=== PATIENT | female | born 1945 | race Caucasian/White ===

== ENCOUNTER 2016-05-05 09:03 | Outpatient (CLI) | payer MEDICARE, OTHER | END 2016-05-05 09:04 | disposition home or self-care (01) | DX: Z79.899 Other long term (current) drug therapy (principal); E55.9 Vitamin D deficiency, unspecified; E78.5 Hyperlipidemia, unspecified ==

== ENCOUNTER 2016-05-17 09:01 | Outpatient (CLI) | payer MEDICARE, OTHER | END 2016-05-17 09:02 | disposition home or self-care (01) | DX: Z12.31 Encounter for screening mammogram for malignant neoplasm of breast (principal) ==

== ENCOUNTER 2016-05-17 09:04 | Outpatient (CLI) | payer MEDICARE, OTHER | END 2016-05-17 09:05 | disposition home or self-care (01) | DX: M81.0 Age-related osteoporosis without current pathological fracture (principal) ==

== ENCOUNTER 2017-05-12 08:00 | Outpatient (CLI) | payer MEDICARE, OTHER ==
[2017-05-12 13:05] LABS: BASOPHILS % (AUTO) 0.6 %; EOSINOPHILS # (AUTO) 0.1 10^3/uL (0.0-0.7); EOSINOPHILS % (AUTO) 2.7 %; HGB - HEMOGLOBIN 14.4 g/dL (12.0-16.0); LYMPHOCYTES # (AUTO) 1.9 10^3/uL (1.5-3.5); MEAN CORPUSCULAR HEMOGLOBIN 30.6 pg (27.0-31.0); MEAN PLATELET VOLUME 8.2 fL (7.9-10.8); MONOCYTES # (AUTO) 0.3 10^3/uL (0.0-1.0); MONOCYTES % (AUTO) 7.5 %; NEUTROPHILS # (AUTO) 1.8 10^3/uL (1.5-6.6); NEUTROPHILS % (AUTO) 43.2 %; PLT - PLATELET COUNT 247 10^3/uL (130-450); RED CELL DISTRIBUTION WIDTH 13.4 % (12.0-15.0); WHITE BLOOD COUNT 4.2 x10^3/uL (4.8-10.8)
[2017-05-12 13:17] LABS: ALBUMIN 4.3 g/dL (3.2-5.5); ALBUMIN/GLOBULIN RATIO 1.3 (1.0-2.2); ALKALINE PHOSPHATASE 71 IU/L (42-121); ALT ALANINE AMINOTRANSFERASE 16 IU/L (10-60); AST ASPARTATE AMINOTRANSFERASE 18 IU/L (10-42); BILIRUBIN,TOTAL 0.4 mg/dL (0.2-1.0); BUN - BLOOD UREA NITROGEN 18 mg/dL (6-20); CARBON DIOXIDE - CO2 26 mmol/L (21-32); CHLORIDE 105 mmol/L (101-111); CHOLESTEROL 295 mg/dL; CREATININE 0.8 mg/dL (0.4-1.0); GFR - MDRD 71 (>89); GLUCOSE 95 mg/dL (70-100); HDL CHOLESTEROL 59 mg/dL; LDL CHOLESTEROL,CALCULATED 195 mg/dL; LDL/HDL RATIO 3.3 (<4.4); SODIUM 137 mmol/L (135-145); TOTAL PROTEIN 7.5 g/dL (6.7-8.2); VLDL CHOLESTEROL 41 mg/dL
== END 2017-05-12 08:01 | disposition home or self-care (01) ==
LOC: LAB.R 08:00
PROVIDERS: ATTEND Nurse Practitioner Primary Care
DX: E55.9 Vitamin D deficiency, unspecified (principal); M81.0 Age-related osteoporosis without current pathological fracture; Z13.29 Encounter for screening for other suspected endocrine disorder; E78.5 Hyperlipidemia, unspecified; Z79.899 Other long term (current) drug therapy
CPT/HCPCS: 80053; 80061; 82306; 83721; 84443; 85025

== ENCOUNTER 2017-11-01 08:05 | Outpatient (CLI) | payer MEDICARE, OTHER ==
[2017-11-01 15:53] LABS: CHOL/HDL RATIO 4.5 (<4.4); CHOLESTEROL 257 mg/dL; HDL CHOLESTEROL 57 mg/dL; LDL CHOLESTEROL,CALCULATED 167 mg/dL; LDL/HDL RATIO 2.9 (<4.4); VLDL CHOLESTEROL 33 mg/dL
== END 2017-11-01 08:06 | disposition home or self-care (01) ==
LOC: LAB.R 08:05
PROVIDERS: ATTEND Nurse Practitioner Primary Care
DX: E78.5 Hyperlipidemia, unspecified (principal)
CPT/HCPCS: 80061; 83721

== ENCOUNTER 2018-01-08 08:35 | Outpatient (CLI) | payer MEDICARE, OTHER ==
[2018-01-08 11:27] LABS: ALT ALANINE AMINOTRANSFERASE 22 IU/L (10-60); AST ASPARTATE AMINOTRANSFERASE 24 IU/L (10-42); CHOL/HDL RATIO 2.6 (<4.4); CHOLESTEROL 146 mg/dL; HDL CHOLESTEROL 56 mg/dL; LDL CHOLESTEROL,CALCULATED 69 mg/dL; LDL/HDL RATIO 1.2 (<4.4); VLDL CHOLESTEROL 21 mg/dL
== END 2018-01-08 08:36 | disposition home or self-care (01) ==
LOC: LAB.R 08:35
PROVIDERS: ATTEND Nurse Practitioner Primary Care
DX: E78.5 Hyperlipidemia, unspecified (principal); Z79.899 Other long term (current) drug therapy
CPT/HCPCS: 80061; 83721; 84450; 84460

== ENCOUNTER 2018-05-14 08:00 | Outpatient (CLI) | payer MEDICARE, OTHER ==
[2018-05-14 15:22] LABS: BASOPHILS % (AUTO) 0.5 %; EOSINOPHILS # (AUTO) 0.1 10^3/uL (0.0-0.7); LYMPHOCYTES # (AUTO) 1.7 10^3/uL (1.5-3.5); LYMPHOCYTES % (AUTO) 32.8 %; MEAN CORPUSCULAR HEMOGLOBIN 31.3 pg (27.0-31.0); MEAN CORPUSCULAR HGB CONC 34.3 g/dL (32.0-36.0); MEAN CORPUSCULAR VOLUME 91.5 fL (81.0-99.0); MEAN PLATELET VOLUME 8.9 fL (7.9-10.8); MONOCYTES # (AUTO) 0.3 10^3/uL (0.0-1.0); MONOCYTES % (AUTO) 5.8 %; NEUTROPHILS % (AUTO) 58.9 %; PLT - PLATELET COUNT 213 10^3/uL (130-450); RED BLOOD COUNT 4.46 10^6/uL (4.20-5.40); RED CELL DISTRIBUTION WIDTH 13.5 % (12.0-15.0); WHITE BLOOD COUNT 5.2 x10^3/uL (4.8-10.8)
[2018-05-14 15:40] LABS: ALBUMIN 4.1 g/dL (3.2-5.5); ALBUMIN/GLOBULIN RATIO 1.5 (1.0-2.2); ALKALINE PHOSPHATASE 75 IU/L (42-121); ALT ALANINE AMINOTRANSFERASE 18 IU/L (10-60); AST ASPARTATE AMINOTRANSFERASE 19 IU/L (10-42); BILIRUBIN,TOTAL 0.6 mg/dL (0.2-1.0); BUN - BLOOD UREA NITROGEN 15 mg/dL (6-20); CALCIUM 8.9 mg/dL (8.5-10.3); CARBON DIOXIDE - CO2 27 mmol/L (21-32); CHLORIDE 104 mmol/L (101-111); CHOL/HDL RATIO 5.2 (<4.4); CHOLESTEROL 281 mg/dL; CREATININE 0.7 mg/dL (0.4-1.0); GFR - MDRD 82 (>89); GLUCOSE 87 mg/dL (70-100); HDL CHOLESTEROL 54 mg/dL; LDL CHOLESTEROL,CALCULATED 188 mg/dL; LDL/HDL RATIO 3.5 (<4.4); SODIUM 138 mmol/L (135-145); TOTAL PROTEIN 6.9 g/dL (6.7-8.2); VLDL CHOLESTEROL 39 mg/dL
== END 2018-05-14 23:59 ==
LOC: LAB.R 08:00
PROVIDERS: ATTEND Nurse Practitioner Primary Care
DX: E55.9 Vitamin D deficiency, unspecified (principal); Z79.899 Other long term (current) drug therapy; E78.5 Hyperlipidemia, unspecified; M81.0 Age-related osteoporosis without current pathological fracture; Z13.29 Encounter for screening for other suspected endocrine disorder
CPT/HCPCS: 80053; 80061; 82306; 83721; 84443; 85025

== ENCOUNTER 2018-07-13 09:26 | Outpatient (CLI) | payer MEDICARE, OTHER ==
[2018-07-13 10:00] LABS: BASOPHILS % (AUTO) 0.8 %; EOSINOPHILS # (AUTO) 0.1 10^3/uL (0.0-0.7); EOSINOPHILS % (AUTO) 2.6 %; HGB - HEMOGLOBIN 13.6 g/dL (12.0-16.0); LYMPHOCYTES # (AUTO) 1.7 10^3/uL (1.5-3.5); MEAN CORPUSCULAR HEMOGLOBIN 30.7 pg (27.0-31.0); MEAN CORPUSCULAR VOLUME 90.5 fL (81.0-99.0); MEAN PLATELET VOLUME 8.3 fL (7.9-10.8); MONOCYTES # (AUTO) 0.3 10^3/uL (0.0-1.0); MONOCYTES % (AUTO) 7.3 %; NEUTROPHILS % (AUTO) 48.3 %; PLT - PLATELET COUNT 243 10^3/uL (130-450); RED BLOOD COUNT 4.44 10^6/uL (4.20-5.40); WHITE BLOOD COUNT 4.2 x10^3/uL (4.8-10.8)
[2018-07-13 10:09] LABS: ALBUMIN 4.1 g/dL (3.2-5.5); ALBUMIN/GLOBULIN RATIO 1.4 (1.0-2.2); BILIRUBIN,TOTAL 0.7 mg/dL (0.2-1.0); CREATININE 0.8 mg/dL (0.4-1.0)
== END 2018-07-13 09:27 | disposition home or self-care (01) ==
LOC: LAB 09:26
PROVIDERS: ATTEND Family Medicine
DX: R19.7 Diarrhea, unspecified (principal); K29.00 Acute gastritis without bleeding; B96.81 Helicobacter pylori [H. pylori] as the cause of diseases classified elsewhere; K21.9 Gastro-esophageal reflux disease without esophagitis
CPT/HCPCS: 36415; 80053; 85025

== ENCOUNTER 2018-08-02 09:28 | Outpatient (CLI) | payer MEDICARE, OTHER ==
--- NOTE | 2018-08-03 09:29 | Mammography Report ---
Reason: SCREENING MAMMO Procedure Date: 08/02/2018 Accession Number: [id number] / [id number] Procedure: OZZIE - Screening Mammo w/Arnoldo CPT Code: FULL RESULT: EXAM: Screening Mammo w/Arnoldo DATE: 08/02/2018 10:04 AM CLINICAL HISTORY: Screening encounter. History of nulliparity. TECHNIQUE: (B) - Bilateral CC and MLO views were obtained. COMPARISON: 05/17/2016 through 05/24/2011. PARENCHYMAL PATTERN: (D) - The breast(s) demonstrate(s) heterogeneously dense fibroglandular parenchyma. FINDINGS: There are coarse typically benign calcifications. There are no suspicious masses, calcifications, or areas of distortion. IMPRESSION: Benign findings. BI-RADS category 2. RECOMMENDATION: (ANNUAL) - Recommend routine annual screening mammography. BI-RADS CATEGORY: (2) - Benign Findings. STANDARD QUALIFYING STATEMENTS: 1. This examination was not reviewed with the aid of Computer-Aided Detection (CAD). 2. A negative or benign imaging report should not preclude biopsy if clinically suspicious findings are present. 3. Dense breasts may obscure an underlying neoplasm. 4. This examination was reviewed with the aid of 3D breast imaging (tomosynthesis).
== END 2018-08-02 09:29 | disposition home or self-care (01) ==
LOC: DI 09:28
PROVIDERS: ATTEND Family Medicine
DX: Z12.31 Encounter for screening mammogram for malignant neoplasm of breast (principal)
CPT/HCPCS: 77063; 77067

== ENCOUNTER 2018-08-02 09:32 | Outpatient (CLI) | payer MEDICARE, OTHER ==
--- NOTE | 2018-08-03 15:32 | DEXA Report ---
Reason: OSTEOPOROSIS Procedure Date: 08/02/2018 Accession Number: [id number] / [id number] Procedure: DEX - Dexa Spine and/or Hip CPT Code: FULL RESULT: EXAM: Dexa Spine and/or Hip DATE: 08/02/2018 10:18 AM CLINICAL HISTORY: OSTEOPOROSIS TECHNIQUE: Dual energy x-ray absorptiometry (DXA) was performed on a [employer] System. Regions measured are the AP Spine, femoral neck, and if needed forearm. COMPARISON: 05/17/2016. In accordance with the International Society for Clinical Densitometry (ISCD) guidelines, data from previous exams may be reanalyzed using current recommendations and techniques. This is done to allow a more accurate basis for comparison with the current study. FINDINGS: The data for the lumbar spine is as follows: BMD (g/cm/cm) T-SCORE Z-SCORE REGION L1 0.842 -2.4 -1.0 L2 0.849 -2.9 -1.5 L3 0.884 -2.6 -1.2 L4 0.984 -1.8 -0.4 TOTAL 0.892 -2.4 -1.0 NOTE: All evaluable vertebrae are used for classification The data for the hip is as follows: BMD (g/cm/cm) T-SCORE Z-SCORE REGION Neck 0.639 -2.9 -1.3 TOTAL 0.799 -1.7 -0.3 NOTE: The femoral neck or total proximal femur, whichever is lowest, is used for classification. DXA RESULTS SUMMARY: Spine SCAN DATE AGE BMD CHANGE VS CHANGE VS PREVIOUS PREVIOUS % 08/02/2018 [age] 0.892 0.022 2.5 05/17/2016 [age] 0.870 * Denotes significant change at the 95% confidence level. Denotes dissimilar scan types or analysis methods. DXA RESULTS SUMMARY: Hip SCAN DATE AGE BMD CHANGE VS CHANGE VS PREVIOUS PREVIOUS % [birth year]02/2018 72.7 0.799 -0.030 -3.6 05/17/2016 70.5 0.829 * Denotes significant change at the 95% confidence level. Denotes dissimilar scan types or analysis methods. IMPRESSION: THE WHO CLASSIFICATION BASED ON THE INTERNATIONAL REFERENCE STANDARD IS OSTEOPOROSIS. THE FRACTURE RISK IS HIGH. RECOMMENDATION: Patients with diagnosis of osteoporosis or osteopenia should have regular bone mineral density assessment. For those eligible for Medicare, routine testing is allowed once every 2 years. Testing frequency can be increased for patients who have rapidly progressing disease or for those who are receiving medical therapy to restore bone mass. COMMENT: World Health Organization (WHO) definitions for osteoporosis and osteopenia: NORMAL BMD: T-score at -1.0 or higher, fracture risk is low OSTEOPENIA BMD: T-score between -1.0 and -2.5, fracture risk is increased. OSTEOPOROSIS BMD: T-score at -2.5 or lower, fracture risk is high. National Osteoporosis Foundation recommends: 1. Obtain adequate dietary calcium (at least 1200 mg per day) and vitamin D (400-800 international units per day). 2. Participate, as appropriate, in regular weightbearing and muscle-strengthening exercise. 3. Avoid tobacco use and reduce alcohol and caffeine intake. 4. For more detailed information see the website at www.NOF.org.
== END 2018-08-02 09:33 | disposition home or self-care (01) ==
LOC: DI 09:32
PROVIDERS: ATTEND Family Medicine
DX: M81.0 Age-related osteoporosis without current pathological fracture (principal); Z78.0 Asymptomatic menopausal state
CPT/HCPCS: 77080

== ENCOUNTER 2018-12-10 10:27 | Outpatient (CLI) | payer MEDICARE, OTHER ==
--- NOTE | 2018-12-11 09:18 | XRAY Report ---
Reason: THORACIC BACK PAIN, BACK PAIN LUMBAR Procedure Date: 12/10/2018 Accession Number: [id number] / [id number] Procedure: XR - Lumbar Spine 2 View CPT Code: FULL RESULT: EXAM: LUMBOSACRAL SPINE RADIOGRAPHY EXAM DATE: 12/10/2018 11:04 AM. CLINICAL HISTORY: Thoracic back pain, back pain lumbar. COMPARISONS: None. TECHNIQUE: 3 views. FINDINGS: Alignment: Normal. No spondylolisthesis or scoliosis. Bones: Five pih-vnb-fqvalux lumbar vertebral bodies are present. Moderate to severe compression fracture of the T12 vertebral body with loss of 70% of the anterior bone height and 20% of the posterior bone height. No retropulsion. Disks: Disk heights are maintained. Minor anterior marginal osteophyte noted at the L1-L2 and L2-L3 vertebral bodies. Facets: No degenerative changes. Sacroiliac Joints: Unremarkable. Soft Tissues: Normal. The visualized bowel gas pattern is normal. No paraspinous soft tissue swelling. IMPRESSION: Moderate to severe compression fracture T12 vertebral body as detailed. Fracture is age indeterminate but lack of soft tissue findings favors chronic fracture. RADIA
--- NOTE | 2018-12-11 09:22 | XRAY Report ---
Reason: THORACIC BACK PAIN, BACK PAIN LUMBAR Procedure Date: 12/10/2018 Accession Number: [id number] / [id number] Procedure: XR - Thoracic Spine 2 View CPT Code: FULL RESULT: EXAM: THORACIC SPINE RADIOGRAPHY EXAM DATE: 12/10/2018 11:05 AM. CLINICAL HISTORY: Thoracic back pain, back pain lumbar. COMPARISON: None. TECHNIQUE: 2 views. FINDINGS: Alignment: Normal. No spondylolisthesis or scoliosis. Bones: Moderate to severe anterior wedging compression fracture of the T12 vertebral body with loss of 70% of the anterior bone height and perhaps 20% of the posterior bone height. No appreciable retropulsion. Minor lateral marginal osteophyte at this level. No additional fractures appreciated. Disks: Normal. Disk heights are maintained. Soft Tissues: No paraspinous soft tissue swelling. IMPRESSION: Moderate to severe anterior wedging compression fracture of T12 as described. Fracture is age-indeterminate but lack of soft tissue findings favors chronic fracture. RADIA
== END 2018-12-10 10:28 | disposition home or self-care (01) ==
LOC: DI 10:27
PROVIDERS: ATTEND Nurse Practitioner
DX: M48.54XA Collapsed vertebra, not elsewhere classified, thoracic region, initial encounter for fracture (principal)
CPT/HCPCS: 72070; 72100

== ENCOUNTER 2018-12-18 09:32 | Outpatient (CLI) | payer MEDICARE, OTHER ==
--- NOTE | 2018-12-18 14:16 | MRI Report ---
Reason: THORACIC BACK PAIN,HX OF PATHOLOGICAL VERTEBRAL FR Procedure Date: 12/18/2018 Accession Number: [id number] / [id number] Procedure: MRI - Thoracic Spine W/O CPT Code: FULL RESULT: EXAM: MRI THORACIC SPINE WITHOUT CONTRAST EXAM DATE: 12/18/2018 10:09 AM. CLINICAL HISTORY: Thoracic back pain, history of pathological vertebral fracture. COMPARISONS: THORACIC SPINE 2 VIEW 12/10/2018 10:47 AM LUMBAR SPINE 2 VIEW 12/10/2018 10:47 AM XR HIPS BILAT 05/24/2011 2:15 PM LT HIP 12/10/2007 12:16 PM. TECHNIQUE: Multiplanar, multisequence T1-weighted and fluid-sensitive sequences of the thoracic spine from C7 to L1 without contrast. Other: None. FINDINGS: Spinal Canal: No signal abnormality in the visualized spinal cord. Alignment: No scoliosis or spondylolisthesis. Bone Marrow: 1. Complete subacute burst fracture T12 vertebral body with fragmentation, concave deformity of the superior and inferior vertebral body endplates, 35% loss in vertebral body height and retropulsed 3 mm posterior superior vertebral body cortex. Probable pathologic fracture with possible T12 vertebral body neoplasm. 2. Modic type I degenerative vertebral body marrow edema anterior T8-T9 interspace with anterior interbody fusion. 3. Anterior T7-T8 Modic type II degenerative vertebral body marrow signal (image 8 series 501). Disk Levels/Facets: C7-T1: Mild bilateral facet joint arthrosis. Negative for spinal canal stenosis or foraminal stenosis. Preservation of disk height. T1-T2: Unremarkable. T2-T3: Anterolisthesis 2 mm T2 on T3. Moderate facet joint arthrosis. Negative for foraminal stenosis. T3-T4: Moderate facet joint arthrosis. Mild right foraminal stenosis from facet hypertrophy. Negative for central spinal canal stenosis. T4-T5: Mild bilateral facet joint arthrosis. Negative for spinal canal stenosis or foraminal stenosis. Mild disk degeneration. T5-T6: Moderate disk degeneration. Mild facet joint arthrosis. Negative for spinal canal stenosis or foraminal stenosis. T6-T7: Moderate disk degeneration. Negative for spinal canal stenosis or foraminal stenosis. Mild left facet joint arthrosis. T7-T8: Moderate disk degeneration. Modic type II degenerative vertebral body marrow signal anterior interspace. Moderate left facet joint arthrosis. Mild left foraminal stenosis. Right neural foramen is negative for stenosis. T8-T9: Modic type I degenerative vertebral body marrow signal anterior interspace. Moderate disk degeneration. Moderate left foraminal stenosis from facet hypertrophy. The right neural foramen is negative for stenosis. T9-T10: Unremarkable. T10-T11: Negative for spinal canal stenosis or foraminal stenosis. T11-T12: Retropulsed 3 mm posterior superior T12 vertebral body with mild ventral effacement of the thoracic cord without cord signal abnormality and mild central spinal canal stenosis. The neural foramina are negative for stenosis. T12-L1: Negative for spinal canal stenosis or foraminal stenosis. Musculature: Normal. No edema or fatty atrophy. Other: The visualized lungs, mediastinum, and abdominal cavity are unremarkable. IMPRESSION: 1. Complete pathologic burst fracture T12 vertebral body with 35% loss of vertebral body height, concave deformity of the superior and inferior vertebral body endplates and retropulsed posterior superior T12 vertebral body cortex. Negative for additional thoracic vertebrae focal lesions to confirm metastasis. 2. Retropulsed 3 mm posterior superior T12 vertebral body cortex with mild ventral effacement of the thoracic cord without cord signal abnormality and mild central spinal canal stenosis. 3. Modic type I degenerative vertebral body marrow edema anterior T8-T9 interspace. 4. The thoracic cord is negative for signal abnormality. 5. Negative for focal disk herniation. 6. Mild right T3-T4, mild left T7-T8 and moderate left T8-T9 foraminal stenosis. RADIA
== END 2018-12-18 09:33 | disposition home or self-care (01) ==
LOC: DI 09:32
PROVIDERS: ATTEND Nurse Practitioner
DX: M48.54XA Collapsed vertebra, not elsewhere classified, thoracic region, initial encounter for fracture (principal); M48.04 Spinal stenosis, thoracic region; M54.5 Low back pain; Z87.311 Personal history of (healed) other pathological fracture
CPT/HCPCS: 72146

== ENCOUNTER 2018-12-26 11:30 | Outpatient (CLI) | payer MEDICARE, OTHER ==
[2018-12-26 11:56] LABS: BASOPHILS % (AUTO) 0.9 %; EOSINOPHILS # (AUTO) 0.1 10^3/uL (0.0-0.7); EOSINOPHILS % (AUTO) 2.2 %; LYMPHOCYTES # (AUTO) 1.9 10^3/uL (1.5-3.5); LYMPHOCYTES % (AUTO) 41.1 %; MEAN CORPUSCULAR HEMOGLOBIN 30.2 pg (27.0-31.0); MEAN CORPUSCULAR HGB CONC 33.3 g/dL (32.0-36.0); MEAN CORPUSCULAR VOLUME 90.7 fL (81.0-99.0); MEAN PLATELET VOLUME 10.4 fL (7.9-10.8); MONOCYTES # (AUTO) 0.3 10^3/uL (0.0-1.0); MONOCYTES % (AUTO) 7.4 %; NEUTROPHILS # (AUTO) 2.2 10^3/uL (1.5-6.6); NEUTROPHILS % (AUTO) 48.2 %; PLT - PLATELET COUNT 229 10^3/uL (130-450); RED BLOOD COUNT 4.64 10^6/uL (4.20-5.40); RED CELL DISTRIBUTION WIDTH 13.8 % (12.0-15.0); WHITE BLOOD COUNT 4.6 x10^3/uL (4.8-10.8)
[2018-12-26] MEDS ORDERED: IOVERSOL 320 50 ML VIAL ONE (11:56)
[2018-12-26] MEDS ORDERED: IOVERSOL 320 100 ML VIAL IVP ONE ×2 (11:57→16:08)
[2018-12-26 12:13] LABS: ALBUMIN 4.3 g/dL (3.2-5.5); ALBUMIN/GLOBULIN RATIO 1.5 (1.0-2.2); BILIRUBIN,TOTAL 0.8 mg/dL (0.2-1.0); CALCIUM 9.7 mg/dL (8.5-10.3); CREATININE 0.9 mg/dL (0.4-1.0); TOTAL PROTEIN 7.2 g/dL (6.7-8.2)
[2018-12-26] MEDS ORDERED: IOVERSOL 320 50 ML VIAL PO ONE (16:08)
--- NOTE | 2018-12-27 08:51 | CT Report ---
Reason: HX OF PATHOLOGICAL VERTEBRAL FRACTURE Procedure Date: 12/26/2018 Accession Number: [id number] / [id number] Procedure: CT - CHEST W CPT Code: FULL RESULT: EXAM: CT CHEST EXAM DATE: 12/26/2018 12:58 PM. CLINICAL HISTORY: History of pathological vertebral fracture. COMPARISONS: THORACIC SPINE W/O 12/18/2018 10:09 AM. TECHNIQUE: Routine helical CT imaging was performed through the chest. IV contrast: 100 mL Optiray 320. Reconstructions: Coronal and sagittal. In accordance with CT protocol optimization, one or more of the following dose reduction techniques were utilized for this exam: automated exposure control, adjustment of mA and/or KV based on patient size, or use of iterative reconstructive technique. FINDINGS: Lungs/Pleura: No nodules, bronchial thickening, consolidation, or edema. Pulmonary vasculature is normal. No pericardial or pleural effusion. No pneumothorax. Mediastinum: Normal. No adenopathy or masses. The heart and great vessels are normal. Bones: Grade 2 burst fracture at T12 appears without significant change versus comparison MRI, including retropulsed superior T12 vertebral body cortex approximately 3 mm into the spinal canal. No bone abnormalities on current study detected elsewhere to indicate metastatic disease. Disk space narrowing with subchondral sclerotic changes consistent with degenerative process is seen anteriorly at T8/T9. Visualized Abdomen: Unremarkable. Other: None. IMPRESSION: Stable appearance of burst fracture at T12. No suspicious foci detected elsewhere on current study to indicate primary or metastatic neoplasm. RADIA
--- NOTE | 2018-12-27 12:51 | CT Report ---
Reason: HX OF PATHOLOGICAL VERTEBRAL FRACTURE Procedure Date: 12/26/2018 Accession Number: [id number] / [id number] Procedure: CT - Abdomen/Pelvis W CPT Code: FULL RESULT: EXAM: CT ABDOMEN AND PELVIS EXAM DATE: 12/26/2018 12:58 PM. CLINICAL HISTORY: History of pathological vertebral fracture. COMPARISONS: THORACIC SPINE W/O 12/18/2018 10:09 AM. TECHNIQUE: Routine helical CT imaging was performed through the abdomen and pelvis. IV contrast: OPTI 320 100ML. Enteric contrast: No. Reconstructions: Coronal and sagittal. In accordance with CT protocol optimization, one or more of the following dose reduction techniques were utilized for this exam: automated exposure control, adjustment of mA and/or KV based on patient size, or use of iterative reconstructive technique. FINDINGS: Lung Bases: Unremarkable. Liver: Normal. No masses. Gallbladder/Bile Ducts: Unremarkable. Spleen: Normal. Pancreas: Normal. Adrenal Glands: Normal. Kidneys: Normal. No masses or hydronephrosis. Peritoneal Cavity/Bowel: Normal. No free fluid, free air or adenopathy. No masses or acute inflammatory process. The appendix is well visualized and normal. Pelvic Organs: Normal. The bladder and visualized pelvic organs are within normal limits. Vasculature: No aneurysms or other significant abnormality. Bones: Stable appearance of burst fracture at T12. No suspicious bone masses or fractures detected elsewhere within the abdomen or pelvis. Other: The central breast parenchyma appears moderately dense. This may be better evaluated by mammography. IMPRESSION: Known burst fracture at T12. No suspicious masses detected on current study. Dense central breast parenchyma, which may be better evaluated by mammography. RADIA
== END 2018-12-26 11:31 | disposition home or self-care (01) ==
LOC: LAB 11:30 → DI 11:31
PROVIDERS: ATTEND Nurse Practitioner
DX: M54.6 Pain in thoracic spine (principal); Z87.311 Personal history of (healed) other pathological fracture
CPT/HCPCS: 36415; 71260; 74177; 80053; 85025; Q9967

== ENCOUNTER 2019-02-21 10:57 | Outpatient (CLI) | payer MEDICARE, OTHER ==
[2019-02-21 11:20] LABS: BASOPHILS # (AUTO) 0.1 10^3/uL (0.0-0.1); EOSINOPHILS # (AUTO) 0.1 10^3/uL (0.0-0.7); EOSINOPHILS % (AUTO) 2.1 %; HGB - HEMOGLOBIN 13.9 g/dL (12.0-16.0); LYMPHOCYTES # (AUTO) 2.3 10^3/uL (1.5-3.5); MEAN CORPUSCULAR HEMOGLOBIN 30.3 pg (27.0-31.0); MEAN CORPUSCULAR VOLUME 91.7 fL (81.0-99.0); MEAN PLATELET VOLUME 10.2 fL (7.9-10.8); MONOCYTES # (AUTO) 0.4 10^3/uL (0.0-1.0); MONOCYTES % (AUTO) 7.9 %; NEUTROPHILS % (AUTO) 41.8 %; PLT - PLATELET COUNT 217 10^3/uL (130-450); RED BLOOD COUNT 4.59 10^6/uL (4.20-5.40); RED CELL DISTRIBUTION WIDTH 13.4 % (12.0-15.0); WHITE BLOOD COUNT 4.8 x10^3/uL (4.8-10.8)
[2019-02-21 11:51] LABS: ALBUMIN 4.5 g/dL (3.2-5.5); ALBUMIN/GLOBULIN RATIO 1.6 (1.0-2.2); ALKALINE PHOSPHATASE 70 IU/L (42-121); ALT ALANINE AMINOTRANSFERASE 17 IU/L (10-60); AST ASPARTATE AMINOTRANSFERASE 20 IU/L (10-42); BUN - BLOOD UREA NITROGEN 21 mg/dL (6-20); CALCIUM 9.3 mg/dL (8.5-10.3); CARBON DIOXIDE - CO2 28 mmol/L (21-32); CHLORIDE 102 mmol/L (101-111); CHOL/HDL RATIO 4.6 (<4.4); CHOLESTEROL 278 mg/dL; CREATININE 0.8 mg/dL (0.4-1.0); GFR - MDRD 70 (>89); GLUCOSE 98 mg/dL (70-100); HDL CHOLESTEROL 60 mg/dL; LDL CHOLESTEROL,CALCULATED 182 mg/dL; SODIUM 140 mmol/L (135-145); TOTAL PROTEIN 7.4 g/dL (6.7-8.2); VLDL CHOLESTEROL 36 mg/dL
== END 2019-02-21 10:58 | disposition home or self-care (01) ==
LOC: LAB 10:57
PROVIDERS: ATTEND Nurse Practitioner
DX: Z87.311 Personal history of (healed) other pathological fracture (principal); M81.0 Age-related osteoporosis without current pathological fracture; Z79.899 Other long term (current) drug therapy; E55.9 Vitamin D deficiency, unspecified; E78.5 Hyperlipidemia, unspecified
CPT/HCPCS: 36415; 80053; 80061; 82306; 83721; 85025

== ENCOUNTER 2019-04-09 11:58 | Outpatient (CLI) | payer MEDICARE, OTHER ==
[2019-04-09 13:31] LABS: THYROID STIMULATING HORMONE 1.74 uIU/mL (0.34-5.60)
[2019-04-09 13:34] LABS: FREE T4 (FREE THYROXINE) 0.89 ng/dL (0.58-1.64)
== END 2019-04-09 11:59 | disposition home or self-care (01) ==
LOC: LAB 11:58
PROVIDERS: ATTEND Nurse Practitioner
DX: L65.9 Nonscarring hair loss, unspecified (principal)
CPT/HCPCS: 36415; 84439; 84443; 84481

== ENCOUNTER 2020-04-01 09:48 | Outpatient (CLI) | payer MEDICARE, OTHER ==
--- NOTE | 2020-04-01 10:35 | DEXA Report ---
PROCEDURE: Dexa Spine and/or Hip INDICATIONS: OSTEOPOROSIS TECHNIQUE: Dual energy x-ray absorptiometry (DXA) was performed on a [employer] System. Regions measur ed are the AP Spine, femoral neck, and if needed forearm. COMPARISON: 08/02/2018. FINDINGS: Lumbar Spine: Bone Mineral Density 0.939 g/cm/cm,T score -2.0, there is 5.3% increase in total lumbar spine bone mineral density since previous study Left Hip: Bone Mineral Density 0.79 g/cm/cm,T score -1.7. There is 1.3% decrease in left total hip bone minera l density since previous study. Left Femoral Neck: Bone Mineral Density 0.648 g/cm/cm, T score -2.8. (T score greater or equal to -1.0: NORMAL) (T score from -1.1 to -2.4: OSTEOPENIA) (T score less than or equal to -2.5 to: OSTEOPOROSIS) Impression: Osteoporosis. Patients with diagnosis of osteoporosis or osteopenia should have regular bone mineral density assess ment. For those eligible for Medicare, routine testing is allowed once every 2 years. Testing frequ ency can be increased for patients who have rapidly progressing disease or for those who are receivin g medical therapy to restore bone mass. Reviewed by: Mikhail Naidu MD on 04/01/2020 9:34 AM [facility] Approved by: Mikhail Naidu MD on 04/01/2020 9:34 AM [place] Station ID: [id number]
== END 2020-04-01 09:49 | disposition home or self-care (01) ==
LOC: DI 09:48
PROVIDERS: ATTEND Nurse Practitioner
DX: M81.0 Age-related osteoporosis without current pathological fracture (principal); M85.88 Other specified disorders of bone density and structure, other site

== ENCOUNTER 2020-05-20 10:31 | Outpatient (CLI) | payer MEDICARE, OTHER ==
[2020-05-20 18:53] LABS: BASOPHILS # (AUTO) 0.1 10^3/uL (0.0-0.1); BASOPHILS % (AUTO) 1.1 %; EOSINOPHILS # (AUTO) 0.1 10^3/uL (0.0-0.7); LYMPHOCYTES # (AUTO) 2.1 10^3/uL (1.5-3.5); LYMPHOCYTES % (AUTO) 45.4 %; MEAN CORPUSCULAR HEMOGLOBIN 29.9 pg (27.0-31.0); MEAN CORPUSCULAR HGB CONC 31.9 g/dL (32.0-36.0); MEAN CORPUSCULAR VOLUME 93.6 fL (81.0-99.0); MEAN PLATELET VOLUME 11.2 fL (7.9-10.8); MONOCYTES # (AUTO) 0.3 10^3/uL (0.0-1.0); MONOCYTES % (AUTO) 6.9 %; NEUTROPHILS % (AUTO) 43.4 %; PLT - PLATELET COUNT 238 10^3/uL (130-450); RED BLOOD COUNT 4.69 10^6/uL (4.20-5.40); RED CELL DISTRIBUTION WIDTH 13.1 % (12.0-15.0); WHITE BLOOD COUNT 4.7 x10^3/uL (4.8-10.8)
[2020-05-20 19:05] LABS: ALBUMIN 4.3 g/dL (3.2-5.5); ALBUMIN/GLOBULIN RATIO 1.6 (1.0-2.2); ALKALINE PHOSPHATASE 75 IU/L (42-121); ALT ALANINE AMINOTRANSFERASE 15 IU/L (10-60); AST ASPARTATE AMINOTRANSFERASE 18 IU/L (10-42); BILIRUBIN,TOTAL 0.7 mg/dL (0.2-1.0); BUN - BLOOD UREA NITROGEN 17 mg/dL (6-20); CALCIUM 9.4 mg/dL (8.5-10.3); CARBON DIOXIDE - CO2 27 mmol/L (21-32); CHLORIDE 103 mmol/L (101-111); CHOL/HDL RATIO 5.3 (<4.4); CHOLESTEROL 273 mg/dL; CREATININE 0.9 mg/dL (0.4-1.0); GLUCOSE 102 mg/dL (70-100); HDL CHOLESTEROL 52 mg/dL; LDL CHOLESTEROL,CALCULATED 187 mg/dL; LDL/HDL RATIO 3.6 (<4.4); VLDL CHOLESTEROL 34 mg/dL
[2020-05-20 19:17] LABS: THYROID STIMULATING HORMONE 1.41 uIU/mL (0.34-5.60)
[2020-05-20 19:18] LABS: FREE T3 3.27 pg/mL (2.5-3.9)
[2020-05-20 19:19] LABS: FREE T4 (FREE THYROXINE) 0.9 ng/dL (0.58-1.64)
== END 2020-05-20 23:59 | disposition home or self-care (01) ==
LOC: LAB.WCP 10:31
PROVIDERS: ATTEND Nurse Practitioner
DX: L65.9 Nonscarring hair loss, unspecified (principal); E78.5 Hyperlipidemia, unspecified; R03.0 Elevated blood-pressure reading, without diagnosis of hypertension
CPT/HCPCS: 36415; 80053; 80061; 83721; 84439; 84443; 84481; 85025

== ENCOUNTER 2020-06-01 08:49 | Outpatient (CLI) | payer MEDICARE, OTHER ==
--- NOTE | 2020-06-02 11:10 | Nuclear Medicine Report ---
PROCEDURE: Bone Whole Body INDICATIONS: HX OF PATHOLOGICAL VERTEBRAL FRACTURE RADIOPHARMACEUTICAL: 26.5 mCi Tc-99m MDP IV. TECHNIQUE: Delayed whole-body scintigrams were obtained approximately 3-4 hours after intravenous injection of r adiotracer. Anterior and posterior views were acquired from vertex to feet. Additional left and rig ht oblique views of the were obtained. COMPARISON: Whole-body bone scan ([facility]), 05/02/2019. MRI of the thoracic spine ([facility]), 12/18/2018. X-ray thoracic spine and lumbar spine ([facility]), 12/10/2018. FINDINGS: There is mildly increased uptake in the T12 area, decreased compared to the last bone scan on 05/02/2019. Multiple foci of increased activity are seen in cervical, thoracic and lumbar spine, indistinguishable from degenerative changes. There are increased periarticular activity in shoulders bilaterally, elbows bilaterally, wrists bilaterally, hips bilaterally, sacroiliac joints bilaterally, knees bilaterally and both feet, compatible with degenerative/arthritic changes. Again noted is hype rostosis frontalis. IMPRESSION: 1. Increased uptake in T12 appears less prominent when compared to the last bone scan, consistent wit h interval healing. Differential diagnoses include osteoporotic fracture versus pathological fracture . For further evaluation of pathological fracture, MRI with and without contrast would be helpful. 2. Degenerative changes in spine and multiple peripheral joints. Radiographic correlation is recommen ded if clinically indicated. Reviewed by: Jessi Moore MD on 06/02/2020 11:08 AM [facility] Approved by: Jessi Moore MD on 06/02/2020 11:08 AM PST Station ID: [id number]
== END 2020-06-01 08:50 | disposition home or self-care (01) ==
LOC: DI 08:49
PROVIDERS: ATTEND Nurse Practitioner
DX: M47.814 Spondylosis without myelopathy or radiculopathy, thoracic region (principal); Z87.311 Personal history of (healed) other pathological fracture
CPT/HCPCS: 78306

== ENCOUNTER 2020-06-11 08:54 | Outpatient (CLI) | payer MEDICARE, OTHER ==
--- NOTE | 2020-06-12 13:21 | Ultrasound Report ---
LIMITED ULTRASOUND OF RIGHT BREAST: 06/11/2020 CLINICAL: Diffuse right breast pain. Comparison is made to exams dated: 06/11/2020 mammogram, 08/02/2018 mammogram, 05/17/2016 mammogram, an d 08/21/2013 mammogram - [facility]. Color flow ultrasound of the right breast 3 o'clock, and retroareolar regions was performed. Viveros sc kristine images of the real-time examination were reviewed. No mass is identifed in the area of the mammographic focal asymmetry in the right breast central to t he nipple posterior depth. IMPRESSION: PROBABLY BENIGN No sonographic abnormality is seen corresponding to the mammographic focal aysmmetry in the right damari ast central to the nipple posterior depth. Follow up right breast mammogram and possible ultrasound i n 6 months are recommended to demonstrate stability. This exam was interpreted at Station ID: [id number]. Electronically Signed By: Satya Osullivan M.D. ar/:06/11/2020 12:18:57 Ultrasound BI-RADS: 3 Probably benign BI-RADS CATEGORY: (3) - 3 Mammo and [place] [id number] 6 month follow-up LATERALITY: (R)
--- NOTE | 2020-06-12 13:21 | Mammography Report ---
BILATERAL DIGITAL DIAGNOSTIC MAMMOGRAM 3D/2D: 06/11/2020 CLINICAL: Routine screening. Occasional right breast pain. Comparison is made to exams dated: 08/02/2018 mammogram, 05/17/2016 mammogram, and 08/21/2013 mammogram - [facility]. The tissue of both breasts is heterogeneously dense. This may lower the sensitivity of mammography. There is a possible 8 mm irregular focal asymmetry with an indistinct margin in the right breast cent ral to the nipple posterior depth. Finding is seen only on tomography. No other significant masses, calcifications, or other findings are seen in either breast. IMPRESSION: INCOMPLETE: NEEDS ADDITIONAL IMAGING EVALUATION The possible 8 mm irregular focal asymmetry in the right breast is indeterminate. An ultrasound is r ecommended. Targeted ultrasound is recommended for further evaluation, which will be performed immed iately following this exam. There is no abnormality seen in the right breast to correspond with the diffuse pain, however, clinic al correlation is recommended. This exam was interpreted at Station ID: [id number]. NOTE: For mammograms, a report in lay terms will be sent to the patient. Approximately 15% of breast malignancies will not be visualized mammographically. In the management of a palpable breast mass, a negative mammogram must not discourage biopsy of a clinically suspicious lesion. Electronically Signed By: Satya godfrey/miguel angel:06/11/2020 12:16:17 ACR BI-RADS Category 0: Incomplete 3340F PARENCHYMAL PATTERN: (D) - The breast(s) demonstrate(s) heterogeneously dense fibroglandular parnadeemy ma. BI-RADS CATEGORY: (0) - 0 Ultrasound [id number] Immediate follow-up LATERALITY: (R)
== END 2020-06-11 08:55 | disposition home or self-care (01) ==
LOC: DI 08:54
PROVIDERS: ATTEND Nurse Practitioner Family
DX: N64.4 Mastodynia (principal)

== ENCOUNTER 2020-11-26 08:52 | Outpatient (CLI) | payer MEDICARE, OTHER ==
[2020-11-26 09:10] LABS: BASOPHILS % (AUTO) 0.8 %; EOSINOPHILS # (AUTO) 0.1 10^3/uL (0.0-0.7); EOSINOPHILS % (AUTO) 2.4 %; HCT - HEMATOCRIT 43.3 % (37.0-47.0); HGB - HEMOGLOBIN 14.2 g/dL (12.0-16.0); LYMPHOCYTES # (AUTO) 2.3 10^3/uL (1.5-3.5); LYMPHOCYTES % (AUTO) 45.5 %; MEAN CORPUSCULAR HEMOGLOBIN 30.2 pg (27.0-31.0); MEAN CORPUSCULAR HGB CONC 32.8 g/dL (32.0-36.0); MEAN CORPUSCULAR VOLUME 92.1 fL (81.0-99.0); MEAN PLATELET VOLUME 10.3 fL (7.9-10.8); MONOCYTES # (AUTO) 0.4 10^3/uL (0.0-1.0); MONOCYTES % (AUTO) 7.5 %; NEUTROPHILS # (AUTO) 2.2 10^3/uL (1.5-6.6); NEUTROPHILS % (AUTO) 43.6 %; PLT - PLATELET COUNT 206 10^3/uL (130-450); RED CELL DISTRIBUTION WIDTH 13.2 % (12.0-15.0)
[2020-11-26 09:26] LABS: ALBUMIN 4.4 g/dL (3.2-5.5); ALBUMIN/GLOBULIN RATIO 1.6 (1.0-2.2); ALKALINE PHOSPHATASE 66 IU/L (42-121); ALT ALANINE AMINOTRANSFERASE 20 IU/L (10-60); AST ASPARTATE AMINOTRANSFERASE 20 IU/L (10-42); BILIRUBIN,TOTAL 0.7 mg/dL (0.2-1.0); BUN - BLOOD UREA NITROGEN 19 mg/dL (6-20); CALCIUM 9.4 mg/dL (8.5-10.3); CARBON DIOXIDE - CO2 27 mmol/L (21-32); CHLORIDE 104 mmol/L (101-111); CHOL/HDL RATIO 3.2 (<4.4); CHOLESTEROL 184 mg/dL; CREATININE 0.8 mg/dL (0.4-1.0); GFR - MDRD 70 (>89); GLUCOSE 109 mg/dL (70-100); HDL CHOLESTEROL 58 mg/dL; LDL CHOLESTEROL,CALCULATED 101 mg/dL; LDL/HDL RATIO 1.7 (<4.4); POTASSIUM 4.9 mmol/L (3.5-5.0); SODIUM 139 mmol/L (135-145); TOTAL PROTEIN 7.2 g/dL (6.7-8.2); TRIGLYCERIDES 124 mg/dL; VLDL CHOLESTEROL 25 mg/dL
[2020-11-26 09:38] LABS: THYROID STIMULATING HORMONE 1.99 uIU/mL (0.34-5.60)
== END 2020-11-26 08:53 | disposition home or self-care (01) ==
LOC: LAB 08:52
PROVIDERS: ATTEND Family Medicine
DX: E78.5 Hyperlipidemia, unspecified (principal); E55.9 Vitamin D deficiency, unspecified; K21.9 Gastro-esophageal reflux disease without esophagitis; M81.0 Age-related osteoporosis without current pathological fracture
CPT/HCPCS: 36415; 80053; 80061; 83721; 84443; 85025

== ENCOUNTER 2021-05-11 08:00 | Outpatient (CLI) | payer MEDICARE, OTHER | END 2021-05-11 23:59 | LOC: LAB.R 08:00 | PROVIDERS: ATTEND Nurse Practitioner | DX: N39.0 Urinary tract infection, site not specified (principal) | CPT/HCPCS: 87086 ==

== ENCOUNTER 2021-10-06 08:09 | Outpatient (CLI) | payer MEDICARE, OTHER ==
[2021-10-06 11:44] LABS: BASOPHILS % (AUTO) 0.9 %; EOSINOPHILS # (AUTO) 0.1 10^3/uL (0.0-0.7); EOSINOPHILS % (AUTO) 2.8 %; HGB - HEMOGLOBIN 14.5 g/dL (12.0-16.0); LYMPHOCYTES # (AUTO) 2.2 10^3/uL (1.5-3.5); LYMPHOCYTES % (AUTO) 48.6 %; MEAN CORPUSCULAR HEMOGLOBIN 30.1 pg (27.0-31.0); MEAN CORPUSCULAR VOLUME 91.5 fL (81.0-99.0); MEAN PLATELET VOLUME 10.7 fL (7.9-10.8); MONOCYTES # (AUTO) 0.4 10^3/uL (0.0-1.0); MONOCYTES % (AUTO) 7.6 %; NEUTROPHILS # (AUTO) 1.8 10^3/uL (1.5-6.6); NEUTROPHILS % (AUTO) 39.9 %; PLT - PLATELET COUNT 237 10^3/uL (130-450); RED BLOOD COUNT 4.81 10^6/uL (4.20-5.40); RED CELL DISTRIBUTION WIDTH 12.8 % (12.0-15.0); WHITE BLOOD COUNT 4.6 x10^3/uL (4.8-10.8)
[2021-10-06 11:51] LABS: ALBUMIN 4.5 g/dL (3.2-5.5); ALBUMIN/GLOBULIN RATIO 1.6 (1.0-2.2); ALKALINE PHOSPHATASE 67 IU/L (42-121); ALT ALANINE AMINOTRANSFERASE 17 IU/L (10-60); AST ASPARTATE AMINOTRANSFERASE 21 IU/L (10-42); BILIRUBIN,TOTAL 0.7 mg/dL (0.2-1.0); BUN - BLOOD UREA NITROGEN 18 mg/dL (6-20); CALCIUM 9.9 mg/dL (8.5-10.3); CARBON DIOXIDE - CO2 29 mmol/L (21-32); CHLORIDE 104 mmol/L (101-111); CHOL/HDL RATIO 5.1 (<4.4); CHOLESTEROL 298 mg/dL; GFR - MDRD 54 (>89); GLUCOSE 107 mg/dL (70-100); HDL CHOLESTEROL 58 mg/dL; LDL CHOLESTEROL,CALCULATED 210 mg/dL; LDL/HDL RATIO 3.6 (<4.4); POTASSIUM 5.6 mmol/L (3.5-5.0); SODIUM 141 mmol/L (135-145); TOTAL PROTEIN 7.3 g/dL (6.7-8.2); TRIGLYCERIDES 150 mg/dL; VLDL CHOLESTEROL 30 mg/dL
[2021-10-06 11:57] LABS: THYROID STIMULATING HORMONE 2.19 uIU/mL (0.34-5.60)
== END 2021-10-06 08:10 | disposition home or self-care (01) ==
LOC: LAB.N 08:09
PROVIDERS: ATTEND Family Medicine
DX: M81.0 Age-related osteoporosis without current pathological fracture (principal); E66.3 Overweight; E78.5 Hyperlipidemia, unspecified; M54.16 Radiculopathy, lumbar region; M54.50 Low back pain, unspecified; E55.9 Vitamin D deficiency, unspecified; K21.9 Gastro-esophageal reflux disease without esophagitis
CPT/HCPCS: 36415; 80053; 80061; 83721; 84443; 85025

== ENCOUNTER 2021-12-24 08:47 | Outpatient (CLI) | payer MEDICARE, OTHER ==
--- NOTE | 2021-12-30 12:06 | Ultrasound Report ---
LIMITED ULTRASOUND OF RIGHT BREAST: 12/24/2021 CLINICAL: Patient returns today to evaluate a focal asymmetry in the right breast. Comparison is made to exams dated: 12/24/2021 mammogram, 06/11/2020 ultrasound, 06/11/2020 mammogram, 02/2019 mammogram, 05/17/2016 mammogram, and 08/21/2013 mammogram - [facility]. Real-time ultrasound of the right breast retroareolar was performed. Viveros scale images of the real-t radha examination were reviewed. There is no sonographic correlate for the 8 mm mass in the right breast central to the nipple middle depth with associated architectural distortion. IMPRESSION: SUSPICIOUS OF MALIGNANCY No sonographic finding to correspond to the mass seen on today's mammogram. This mass is more conspic ious when compared with prior exam. Stereotactic biopsy recommended. This exam was interpreted at Station ID: [id number]. Electronically Signed By: Yanick Boston M.D. jr/:12/24/2021 15:56:06 Ultrasound BI-RADS: 4 Suspicious for malignancy BI-RADS CATEGORY: (4) - 4 Biopsy [id number] Immediate follow-up LATERALITY: (R)
--- NOTE | 2021-12-30 12:07 | Mammography Report ---
BILATERAL DIGITAL DIAGNOSTIC MAMMOGRAM 3D/2D: 12/24/2021 CLINICAL: Patient returns for a 6 (been 1/2 years) month follow up of the right breast, due for bilat eral exam. Comparison is made to exams dated: 06/11/2020 mammogram, 08/02/2018 mammogram, 05/17/2016 mammogram, an d 08/21/2013 mammogram - [facility]. Both breasts are heterogeneously dense, which may obscure small masses (category c / 51-75% glandula r tissue). There is an 8 mm irregular high density focal asymmetry with a spiculated margin in the right breast central to the nipple middle depth. This is more prominent and increased in size. No other significant masses, calcifications, or other findings are seen in either breast. IMPRESSION: INCOMPLETE: NEEDS ADDITIONAL IMAGING EVALUATION The 8 mm irregular high density focal asymmetry in the right breast is indeterminate. An ultrasound is recommended. Targeted ultrasound is recommended for further evaluation, which will be performed i mmediately following this exam. There is no abnormality seen in the right breast to correspond with the diffuse pain, however, clinic al correlation is recommended. Based on the Tyrer Cuzick model (a risk assessment model) the patients lifetime risk is 14.2% and he r 10 year risk is 0.0%. According to the ACR, ACS, and NCCN guidelines, an annual breast MRI exam gaby ng with mammogram is recommended if the patients lifetime risk is 20% or greater. This exam was interpreted at Station ID: [id number]. NOTE: For mammograms, a report in lay terms will be sent to the patient. Approximately 15% of breast malignancies will not be visualized mammographically. In the management of a palpable breast mass, a negative mammogram must not discourage biopsy of a clinically suspicious lesion. Electronically Signed By: Yanick Boston M.D., jr/miguel angel:12/24/2021 15:54:17 ACR BI-RADS Category 0: Incomplete 3340F PARENCHYMAL PATTERN: (D) - The breast(s) demonstrate(s) heterogeneously dense fibroglandular parenchy ma. BI-RADS CATEGORY: (0) - 0 Ultrasound [id number] Immediate follow-up LATERALITY: (B)
== END 2021-12-24 08:48 | disposition home or self-care (01) ==
LOC: DI 08:47
PROVIDERS: ATTEND Physician Assistant
DX: N64.4 Mastodynia (principal); R92.8 Other abnormal and inconclusive findings on diagnostic imaging of breast

== ENCOUNTER 2022-10-03 08:22 | Outpatient (CLI) | payer MEDICARE, OTHER ==
[2022-10-03 08:39] LABS: BASOPHILS % (AUTO) 0.8 %; EOSINOPHILS # (AUTO) 0.1 10^3/uL (0.0-0.7); EOSINOPHILS % (AUTO) 2.9 %; HCT - HEMATOCRIT 41.7 % (37.0-47.0); LYMPHOCYTES # (AUTO) 1.5 10^3/uL (1.5-3.5); LYMPHOCYTES % (AUTO) 40.5 %; MEAN CORPUSCULAR HGB CONC 33.6 g/dL (32.0-36.0); MEAN CORPUSCULAR VOLUME 89.5 fL (81.0-99.0); MEAN PLATELET VOLUME 9.9 fL (7.9-10.8); MONOCYTES # (AUTO) 0.3 10^3/uL (0.0-1.0); MONOCYTES % (AUTO) 8.7 %; NEUTROPHILS # (AUTO) 1.8 10^3/uL (1.5-6.6); NEUTROPHILS % (AUTO) 46.8 %; PLT - PLATELET COUNT 196 10^3/uL (130-450); RED BLOOD COUNT 4.66 10^6/uL (4.20-5.40); RED CELL DISTRIBUTION WIDTH 13.5 % (12.0-15.0); WHITE BLOOD COUNT 3.8 x10^3/uL (4.8-10.8)
[2022-10-03 09:01] LABS: ALBUMIN 3.8 g/dL (3.2-5.5); ALBUMIN/GLOBULIN RATIO 1.3 (1.0-2.2); ALKALINE PHOSPHATASE 62 IU/L (42-121); ALT ALANINE AMINOTRANSFERASE 19 IU/L (10-60); AST ASPARTATE AMINOTRANSFERASE 21 IU/L (10-42); BILIRUBIN,TOTAL 0.6 mg/dL (0.2-1.0); BUN - BLOOD UREA NITROGEN 14 mg/dL (6-20); CALCIUM 9.2 mg/dL (8.5-10.3); CARBON DIOXIDE - CO2 28 mmol/L (21-32); CHLORIDE 109 mmol/L (101-111); CHOL/HDL RATIO 4.8 (<4.4); CHOLESTEROL 274 mg/dL; CREATININE 0.9 mg/dL (0.4-1.0); GFR - MDRD 61 (>89); GLUCOSE 110 mg/dL (70-100); HDL CHOLESTEROL 57 mg/dL; LDL CHOLESTEROL,CALCULATED 194 mg/dL; LDL/HDL RATIO 3.4 (<4.4); POTASSIUM 4.9 mmol/L (3.5-5.0); SODIUM 141 mmol/L (135-145); TOTAL PROTEIN 6.7 g/dL (6.7-8.2); TRIGLYCERIDES 117 mg/dL; VLDL CHOLESTEROL 23 mg/dL
[2022-10-03 09:07] LABS: THYROID STIMULATING HORMONE 1.24 uIU/mL (0.34-5.60)
== END 2022-10-03 08:23 | disposition home or self-care (01) ==
LOC: LAB 08:22
PROVIDERS: ATTEND Family Medicine
DX: C50.911 Malignant neoplasm of unspecified site of right female breast (principal); Z17.0 Estrogen receptor positive status [ER+]; F43.21 Adjustment disorder with depressed mood; E78.5 Hyperlipidemia, unspecified; K21.9 Gastro-esophageal reflux disease without esophagitis
CPT/HCPCS: 36415; 80053; 80061; 83721; 84443; 85025

== ENCOUNTER 2023-04-20 08:58 | Outpatient (CLI) | payer MEDICARE, OTHER ==
--- NOTE | 2023-04-20 11:05 | CT Report ---
PROCEDURE: MAXILLOFACIAL WO INDICATIONS: JAW PAIN TECHNIQUE: Noncontrast 1.5 mm thick axial images acquired from the mandible through the frontal sinuses, with co denny and sagittal reformatting. For radiation dose reduction, the following was used: automated ex posure control, adjustment of mA and/or kV according to patient size. COMPARISON: None. FINDINGS: Image quality: There is artifact associated with the metallic hardware. Bones and teeth: In this patient with this given history, scrutiny is given to the mandible. No frac tures or dislocations can be seen involving the mandible. Orbital powers are intact. Sinus powers show no fracture or deformity. Nasal bones and septum are int act. Zygomatic arches are intact. Pterygoid plates are intact. Visualized portions of the skull ba se and auditory canals are intact. There is partial visualization of at least moderate cervical spine degenerative change Sinuses: Mild mucosal thickening can be seen involving the inferior maxillary sinuses. The frontal si nuses are poorly developed. The paranasal sinuses otherwise appear clear. There is mild rightward jose elias al septal deviation. No significant abnormal fluid can be seen within the mastoid air cells. Soft tissues: No edema, masses, or fluid collections. No enlarged lymph nodes. No soft tissue lace rations or debris. Vascular: Visualized vascular structures appear normal in the absence of contrast. Bony vascular fo ramina and canals are intact. IMPRESSION: Normal-appearing mandible, without findings of fractures or dislocations. There is at least moderate cervical spine degenerative change. Reviewed by: Antoni Wheatley MD on 04/20/2023 10:04 AM [facility] Approved by: Antoni Wheatley MD on 04/20/2023 10:04 AM [facility] Station ID: [id number]
== END 2023-04-20 08:59 | disposition home or self-care (01) ==
LOC: DI 08:58
PROVIDERS: ATTEND Physician Assistant Medical
DX: R68.84 Jaw pain (principal); M47.812 Spondylosis without myelopathy or radiculopathy, cervical region

== ENCOUNTER 2023-05-23 09:43 | Outpatient (CLI) | payer MEDICARE, OTHER ==
--- NOTE | 2023-05-23 10:33 | DEXA Report ---
PROCEDURE: Dexa Spine and/or Hip INDICATIONS: POST MENOPAUSAL TECHNIQUE: Dual energy x-ray absorptiometry (DXA) was performed on a [employer] System. Regions measur ed are the AP Spine, femoral neck, and if needed forearm. COMPARISON: 04/01/2020 FINDINGS: Lumbar Spine: Bone Mineral Density: 0.994 g/cm/cm,T score: -1.5. There has been no statistically significant barron e in bone mineral density since the prior study. Left Femoral Neck: Bone Mineral Density: 0.640 g/cm/cm, T score: -2.9. Left Hip: Bone Mineral Density: 0.810 g/cm/cm,T score: -1.6. There has been no statistically significant change in bone mineral density since the prior study. (T score greater or equal to -1.0: NORMAL) (T score from -1.1 to -2.4: OSTEOPENIA) (T score less than or equal to -2.5 to: OSTEOPOROSIS) Impression: By WHO criteria, this patient has low bone density (osteopenia). No statistical interval change in bone mineral density of the lumbar spine. No statistical interval c hange in bone mineral density of the hip (however, mild interval increase in overall bone mineral den sity). Patients with diagnosis of osteoporosis or osteopenia should have regular bone mineral density assess ment. For those eligible for Medicare, routine testing is allowed once every 2 years. Testing frequ ency can be increased for patients who have rapidly progressing disease or for those who are receivin g medical therapy to restore bone mass. Reviewed by: Wilian Garcia MD on 05/23/2023 10:31 AM [facility] Approved by: Wilian Garcia MD on 05/23/2023 10:31 AM PST Station ID: [id number]
== END 2023-05-23 09:44 | disposition home or self-care (01) ==
LOC: DI 09:43
PROVIDERS: ATTEND Family Medicine
DX: Z78.0 Asymptomatic menopausal state (principal); Z87.311 Personal history of (healed) other pathological fracture; M81.0 Age-related osteoporosis without current pathological fracture